=== PATIENT | female | born 1940 | race Caucasian/White ===

== ENCOUNTER 2018-03-29 14:51 | Day surgery (SDC) | payer MEDICARE, OTHER, BC ==
[2015-04-23 16:53] VITALS: BMI 27.4
--- NOTE | ~2018-03-29 | OP ---
PATIENT NAME: KATIE BROWN MEDICAL RECORD: [id number] :42 LOCATION:RY ADMISSION DATE: SURGEON: ANNMARIE SAMUELS MD DATE OF OPERATION: 03/29/2018 PREOPERATIVE DIAGNOSES: Distal radius and ulna fracture -- intra-articular comminuted. POSTOPERATIVE DIAGNOSES: Distal radius and ulna fracture -- intraarticular comminuted. PROCEDURES: 1. Open reduction internal fixation of left distal radius fracture. 2. Application of birail external fixator, left distal radius. SURGEON: Annmarie Samuels MD ANESTHESIA: General. INTRAOPERATIVE COMPLICATIONS: None. SUMMARY OF PATHOLOGIC FINDINGS: Ms. Brown had a very comminuted distal radius fracture that required not only external fixation with pinning, but also a volar plate to reestablish the patient's anatomy, which was very difficult to do. Suspicion remains for a carpal ligamentous injury. OPERATIVE SUMMARY IN DETAIL: After obtaining the appropriate preoperative orthopedic surgery consent as well as anesthetic consultation, evaluation and clearance, the patient was brought to the operating room and placed on the operating table in supine position. After general laryngeal mask airway was administered, tourniquet was placed about the proximal aspect of the left upper extremity. Left upper extremity was then prepped and draped in routine sterile fashion. Reduction maneuver was performed with fluoroscopic guidance showing a very unstable distal radial and ulnar fracture and with substantial amount of traction, the patient still had intra-articular comminution. At this point, the decision was made to proceed with an external fixator. Two apex pins were placed in the radius and 2 apex pins were placed in the base of the second metacarpal. Gentle traction was placed across this. The volar segment continued to be substantially displaced and her volar tilt was again dorsally angulated. At this point, provisional pinning was attempted and the decision was made to proceed with open reduction and internal fixation. Routine volar approach of Moe was utilized from the base of the palm down the radius. Carpal tunnel was released. Again, the patient had had prior release, there was substantial amount of hematoma in the wrist and in the carpal canal. Dissection was gently carried down, median nerve was protected, and the fracture was then approached under direct fluoroscopic visualization. A volar plate was placed with a combination of both compression and locking screws. Final radiographs taken in AP, lateral and oblique planes were submitted to radiologist for review reestablishing the patient's volar tilt, radial angle of inclination, and radial height. The ulnar fracture was lined up anatomically. Decision made to not proceed with any type of internal fixation of the ulnar nerve. Wounds at this point were copiously irrigated and closed in usual fashion. Sterile dressings were applied. The tourniquet was deflated. The patient was awakened, taken to recovery room in stable condition. All final needle and sponge counts were correct. OPERATIVE REPORT [id number] KATIE BROWN TRANSINT:[id number] Voice Confirmation ID: [id number] DOCUMENT ID: [id number] ARVIND ROBIN, ANNMARIE MUÑIZ at 0720 CC: [id number] DICTATION DATE: 04/02/18 0848 YACHT RIGGER: 04/02/18 1413 [facility] 03/29/18 [id number] [place] [address]
[~2018-03-29 14:51] MED LIST: ADVIL200 MG; AVALIDE 150-12.1 TA1 PO; CALAN SR240 MG PO; DEMEROL50 MG PO; ECOTRIN81 MG PO; ELIQUIS2.5 MG PO; FISH OIL 1,0001 CA1 PO; KLOR-CON 1010 MEQ PO; LASIX20 MG PO; MULTI-DAY VITAM1 TAB PO; NEXIUM40 MG PO; VIMOVO 375-201 EACH PO
[2018-03-29 15:43] LABS: BASOPHILS 0.3 % (0-2); HEMATOCRIT 37.8 % (36.0-48.0); HEMOGLOBIN 12.8 g/dL (12-16); IMMATURE GRANULOCYTES 0.3 % (0-5); LYMPHOCYTES 25.9 % (15-50); MCH 29.9 pg (26.0-34.0); MCHC 33.9 g/dL (31.0-37.0); MCV 88.3 fL (80.0-100.0); MEAN PLATELET VOLUME 8.8 fL (7.4-10.4); MONOCYTES 7.3 % (2-11); NEUTROPHILS 65.2 % (40-80); RBC 4.28 10x6/uL (4.00-5.40); RDW 13.8 % (11.5-14.5); WBC 6.7 10x3/uL (4.8-10.8)
[2018-03-29 15:57] LABS: PLATELET COUNT 239 10x3/uL (130-400)
[2018-03-29 16:06] LABS: ALBUMIN 3.7 g/dL (3.4-5.0); ALKALINE PHOSPHATASE 34 U/L (46-116); ALT (SGPT) 25 U/L (10-68); CALC OSMOLALITY 277 mosm/kg (275-300); CALCIUM 9.2 mg/dL (8.5-10.1); CARBON DIOXIDE 25.7 mmol/L (21.0-32.0); CHLORIDE - SERUM 102 mmol/L (98-107); CREATININE - SERUM 0.9 mg/dL (0.6-1.3); GLUCOSE 102 mg/dL (74-106); POTASSIUM - SERUM 3.5 mmol/L (3.5-5.1); PROTEIN - SERUM 6.7 g/dL (6.4-8.2); SODIUM 139 mmol/L (136-145); UREA NITROGEN 13 mg/dL (7-18); eGFR NON AFRICAN AMERICAN 64 mL/min (90-120)
[2018-03-29 16:08] LABS: INR 0.96 (0.85-1.17); PROTIME 12.4 SECONDS (11.6-15.0)
[2018-03-29 16:13] LABS: CREATINE KINASE 80 UL (21-215); PRO BNP 78 pg/mL (0-450); TROPONIN-I < 0.017 ng/mL (0.000-0.060)
[2018-03-29 20:00] VITALS: BP 109/71
[2018-03-29 20:15] VITALS: BP 104/67
[2018-03-29 20:30] VITALS: BP 93/60
[2018-03-29 20:45] VITALS: BP 103/51
[2018-03-29 21:30] VITALS: BP 98/52
[2018-03-29 23:00] VITALS: BP 110/51
== END 2018-03-29 23:25 | disposition home or self-care (01) ==
LOC: D.ER 14:51 → D.MS 19:56 → D.OPS 19:56
PROVIDERS: Nurse Practitioner Family
DX: S52.572A Other intraarticular fracture of lower end of left radius, initial encounter for closed fracture (principal); I10 Essential (primary) hypertension; E66.01 Morbid (severe) obesity due to excess calories; Z01.812 Encounter for preprocedural laboratory examination

== ENCOUNTER 2018-04-16 05:46 | Day surgery (SDC) | payer MEDICARE, OTHER, BC ==
[~2018-04-16] VITALS: Ht 172.7 cm; Wt 89.8 kg
--- NOTE | ~2018-04-16 | OP ---
PATIENT NAME: KATIE BLOCK MEDICAL RECORD: [id number] :42 LOCATION:D.OPS ADMISSION DATE: SURGEON: ANNMARIE SAMUELS MD DATE OF OPERATION: 04/16/2018 PREOPERATIVE DIAGNOSIS: Retained external fixator. POSTOPERATIVE DIAGNOSIS: Retained external fixator. PROCEDURE: Removal of external fixation device, birail and removal of K-wire. SURGEON: Annmarie Samuels MD ANESTHESIA: General. INTRAOPERATIVE COMPLICATIONS: None. SUMMARY OF PATHOLOGIC FINDINGS: Essentially none. OPERATIVE SUMMARY IN DETAIL: After obtaining the appropriate preoperative orthopedic surgery consent as well as anesthetic consultation, evaluation and clearance, the patient was brought to the operating room and placed on the operating table in supine position. After adequate general laryngeal mask airway was administered, the patient's left upper extremity was then prepped and draped in routine sterile fashion. The previously placed sutures were removed at all sites. The ex-fix was taken down and the apex pins were removed. Sterile dressings were applied. A volar splint was applied. The patient was awakened and taken to recovery room in stable condition. All final needle and sponge counts were correct. TRANSINT:[id number] Voice Confirmation ID: [id number] DOCUMENT ID: [id number] ANNMARIE SAMUELS MD at 0939 CC: [id number] DICTATION DATE: 04/16/18 08 CLICKER OPERATOR: 04/16/18 0911 [facility] [address] [place] [address]
[2018-04-16 06:26] LABS: HEMATOCRIT 41.3 % (36.0-48.0); HEMOGLOBIN 13.9 g/dL (12-16); MCH 29.6 pg (26.0-34.0); MCHC 33.7 g/dL (31.0-37.0); MCV 87.9 fL (80.0-100.0); MEAN PLATELET VOLUME 9.2 fL (7.4-10.4); RBC 4.7 10x6/uL (4.00-5.40); RDW 13.2 % (11.5-14.5); WBC 7.7 10x3/uL (4.8-10.8)
[2018-04-16 06:28] VITALS: Ht 172.7 cm; Wt 89.8 kg
== END 2018-04-16 09:20 | disposition home or self-care (01) ==
LOC: D.OPS 05:46 → D.PAN 07:30 → D.OPS 07:30
PROVIDERS: Anesthesiology
DX: Z46.89 Encounter for fitting and adjustment of other specified devices (principal); Z01.812 Encounter for preprocedural laboratory examination

== ENCOUNTER → 2021-02-26 09:42 | Outpatient (CLI) | payer MEDICARE ==
[2020-12-21 07:59] VITALS: BMI 32.0
[~2021-02-26 09:42] MED LIST changes: +ULTRAM50 MG PO
== END | disposition home or self-care (01) ==
LOC: D.US 09:30
PROVIDERS: ATTEND Clinical Nurse Specialist Family Health
DX: R22.41 Localized swelling, mass and lump, right lower limb (principal)